=== PATIENT | female | born 2000 | race Asian ===

== ENCOUNTER 2022-04-01 17:29 | Emergency (ER) | payer OTHER, SELFPAY ==
[2022-04-01 18:29] VITALS: BP 106/67; PULSE 80; RESP 18; TEMP 36.5; O2SAT 99
--- NOTE | 2022-04-01 18:51 | ED.URI ---
HPI - URI/Sore Throat General Chief Complaint: Upper Respiratory Infection Stated Complaint: sorethroat Time Seen by Provider: 04/01/22 18:51 Source: patient and family Mode of arrival: ambulatory Limitations: no limitations History of Present Illness HPI Narrative: 21-year-old female presents with complaint of sore throat, postnasal drainage since last night. Afebrile. Denies congestion, sinus pain, cough. No nausea vomiting diarrhea. No chest pain or shortness of breath. Patient is well-appearing. Concerned she has strep throat. Using throat drops. Has not taken any Tylenol or ibuprofen to treat her pain. All systems reviewed and negative except as noted above. Related Data Allergies Allergy/AdvReac Type Severity Reaction Status Date / Time No Known Allergies Allergy Verified 04/01/22 18:35 Review of Systems Review of Systems: CONSTITUTIONAL: Denies fever, chills, or sweats. EYES: Denies visual changes, redness, or discharge. ENT: Denies rhinorrhea, congestion . Reports sore throat and postnasal drainage. Denies otalgia CARDIOVASCULAR: Denies chest pain, palpitations, or edema. RESPIRATORY: Denies cough or dyspnea. GASTROINTESTINAL: Denies abdominal pain, nausea, vomiting, or diarrhea. GENITOURINARY: Denies dysuria or hematuria. SKIN: Denies rash or itching. MUSCULOSKELETAL: Denies back pain, joint pain, or myalgia. NEUROLOGIC: Denies headache, numbness, or weakness. PSYCHIATRIC: Denies anxiety or depression. All other systems reviewed are negative, except as documented in HPI. PMFSH Past Medical History Medical History Allergies Anxiety Family History Family History Mother Asthma Grandparent Diabetes mellitus Sibling Alpha-thalassemia Other No problems noted. Social History Social History Smoking status: Never smoker Alcohol intake: never Substance use: never Additional occupation/education comments: works at daycare Agree to blood products: No Comments At time of signature, agree with nursing past medical, surgical, social and family history. There is no relevant family history pertinent to the presenting complaint. Exam Narrative: GENERAL: This is a well-nourished, well-developed patient, in no apparent distress. HEAD: normocephalic, atraumatic. EYES: PERRL. Sclera clear/white. Vision is grossly intact. EARS: External ears normal, auditory canals clear and without drainage, TMs normal without perforation. Hearing grossly intact. NOSE: External nose normal with no obvious nasal discharge, nares without redness, no rhinorrhea. THROAT: Mucous membranes moist, posterior pharynx clear. NECK: Neck supple, non-tender without lymphadenopathy, masses or thyromegaly. CARDIOVASCULAR: Regular rate and rhythm without murmurs, gallops, or rubs. RESPIRATORY: Clear to auscultation. Breath sounds equal bilaterally. No wheezes, rales, or rhonchi. SKIN: warm, Dry, intact with no suspicious lesions or rash, good texture and turgor. NEURO: awake, alert, and oriented to person, place and time. There were no obvious focal neurologic abnormalities. EXTREMITIES: No joint tenderness, effusion, or edema noted. Course Course Level of Care: Express Care Visit Vital Signs Vital signs: Vital Signs Temperature 36.5 C 04/01/22 18:29 Pulse Rate 80 04/01/22 18:29 Respiratory Rate 18 04/01/22 18:29 Blood Pressure 106/67 04/01/22 18:29 Pulse Oximetry 99 04/01/22 18:29 Oxygen Delivery Room Air 04/01/22 18:29 Temperature 36.5 C 04/01/22 18:29 Pulse Rate 80 04/01/22 18:29 Respiratory Rate 18 04/01/22 18:29 Blood Pressure 106/67 04/01/22 18:29 Pulse Oximetry 99 04/01/22 18:29 Oxygen Delivery Room Air 04/01/22 18:29 reviewed MDM - URI/Sore Throat MDM Narrative Medical decisi
== END 2022-04-01 19:06 | disposition home or self-care (01) ==
PROVIDERS: Emergency Provider Nurse Practitioner Family
DX: J02.9 Acute pharyngitis, unspecified (principal)
CPT/HCPCS: 87081; 99213; G0463